=== PATIENT | female | born 1990 | race Caucasian/White ===

== ENCOUNTER → 2016-04-09 | Outpatient (CLI) | payer OTHER, MEDICAID | LOC: RAD 12:47 | PROVIDERS: ATTEND Family Medicine | DX: Z36 Encounter for antenatal screening of mother (principal) | CPT/HCPCS: 76805 ==

== ENCOUNTER → 2016-06-03 | Outpatient (REF) | payer MEDICAID, OTHER ==
[~2016-06-03] MED LIST: AMOX1TAB12 PO; DICY20TA10 PO; HYDR-757 PO; MAGN400O7 PO; MNTL10T PO; NAPR250T PO; NYST30CR TOP; ONDA4TAB8 PO; ONDA8TAB13 PO; OXYC1TAB87 PO; PNV1TAB.7 PO; PNV1TABL71 PO; PRM25T GT; PROM25SU10 PR; PROM25TA14 PO; URSO300C3 PO
== END ==
LOC: LAB 14:59
PROVIDERS: ATTEND Family Medicine
DX: Z33.1 Pregnant state, incidental (principal)
CPT/HCPCS: 86850; 86900; 86901

== ENCOUNTER → 2016-06-05 | Outpatient (CLI) | payer MEDICAID ==
[~2016-06-05] MED LIST changes: +HYDR-4131 PO; -HYDR-757 PO
--- NOTE | 2016-06-05 14:39 | Diagnostic Imaging Report ---
INDICATION: Size and dates. FINDINGS: Robb gestation measures 29 weeks 4 days, in cephalic position. Anterior placenta unremarkable. No abruption or previa. The amniotic fluid volume is within normal limits. heart rate 139 bpm. IMPRESSION: Robb gestation measuring 29 weeks 4 days in cephalic position, no pathological finding identified Dictated by: Dictated on workstation # [id number]
== END ==
LOC: RAD 10:01
PROVIDERS: ATTEND Family Medicine
DX: O26.843 Uterine size-date discrepancy, third trimester (principal); Z3A.29 29 weeks gestation of pregnancy
CPT/HCPCS: 76815

== ENCOUNTER 2016-06-26 15:15 | Outpatient (RCR) | payer MEDICAID ==
--- NOTE | 2016-06-18 15:25 | PT/OT/ST INITIAL EVALUATION ---
Department of Health and Human Services Form Approved [facility] [place] [employer] OMB No. [id number] PLAN OF CARE/ASSESSMENT FOR OUTPATIENT REHABILITATION (Complete for Initial Claims Only) 1. PATIENT'S NAME Senait Dobson 2. ACC # [id number] 3. HICN NA 4. PROVIDER NO. NA 5. TYPE: PT 6. PRIOR HOSPITALIZATION NA 7. PRIMARY DX Low back pain related to 8. SECONDARY DX NA 9. ONSET DATE 06/16/2016 10. REFERRAL DATE 06/16/2016 11. SOC. DATE 06/18/2016 12. TIME OF EVAL 13:25 12. REFERRING PHYSICIAN Breanna Rodriguez MD 13. CHARGES/UNITS Evaluation 02437 moderate complexity 2 units of therapeutic exercise 13766 14. G CODES NA 15. PRIOR LEVEL OF FUNCTION; PERTINENT HISTORY (Prior therapy results, reason for referral.) S: Prior to therapy, the patient consented to today's evaluation and treatment. The patient is a 26-year-old female referred by Dr. Breanna Rodriguez to address low back pain related to her . The patient presents to physical therapy 30 weeks with her second child. She does know she had an injury after falling with her first child during and is having pelvic-related issues with this second . Currently she reports pain in the low back into her hips that are most bothersome when transitioning from a prolonged seated position to standing position, or lying in bed then moving. Prior level of function: Prior to the progression of pain symptoms, the patient had no specific functional limitations. She does report they are currently in the process of moving home, as well as remodeling. 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 Current level of function: The patient denies any specific limitations, however, does have pain with most movement, as well as prior stated transitional movements after prolonged sitting or lying. Therapy History: The patient did not have any physical therapy for this issue during this , but did see a chiropractor prior to being 20 weeks . Obstacles to delivery of care: Caution should be used secondary to the patient being 30 weeks to avoid any modalities at this time, as well as avoiding joint mobilizations. Pain level: Maximum pain level is not provided. Current pain level is 8/10. Aggravating factors: The pain is aggravated when trying to move from sitting for prolonged periods of time. Relieving factors: It is relieved by Tylenol. Description of pain: The patient notes pain throughout her low back into the anterior lateral hips bilaterally, as well as experiencing numbness in the bilateral lower extremities when lying down for any longer period of time on either side. Diagnostic testing: Not applicable Past medical history: Includes right-sided sciatic nerve involvement when she was with her son, depression, as well as left knee ligamentous tears when she was in high school. Current medications: The patient is currently taking Tylenol as needed for pain. Activity level: Moderate Personal health rating: Fair Patient's Goal: The patient's goal is to not have pain. 16. INITIAL ASSESSMENT/SAFETY PRECAUTIONS/MEDICAL COMPLICATIONS (Level of function at start of care. Be specific, use objective measures, list problems.) O: APPEARANCE AND OBSERVATION: The patient presents to physical therapy with increased lumbar lordosis secondary to the positioning of her baby. Observation of the patient's iliac crest reveals right superior to the left. In standing, assessment in leg length in supine reveals the right lower extremity is shorter than the left. Observation of the patient's gait reveals a wide base of support secondary to the positioning of the baby. PALPATION: The patient has tenderness to palpation and tightness in the bilateral lumbar paraspinals, bilateral SI joints and iliotibial bands. SPECIAL TESTS: No special testing was performed this date. The patient does score a 53.75% disability on the Lower Extremity Functional Index. RANGE OF MOTION/FLEXIBILITY: Functional lower extremity range of motion was not limited in standing, but is limited in sitting secondary to the positioning of the baby. STRENGTH: Right hip flexion 4/5, left 5/5. Right abduction 5/5, left 5/5. Knee flexion right 4+5, left 4+/5. Knee extension right 5/5, left 5/5. Ankle dorsiflexion right 5/5, left 5/5. TODAY'S TREATMENT: Today's treatment consisted of educating the patient on the findings of the evaluation and recommended treatment plan. The physical therapist initiated lower extremity stretching and pelvic active range of motion exercises on a stability ball as well as initiating lower extremity nerve glides to decrease nerve tension throughout the lower extremities. The physical therapy then performed passive stretching of the bilateral hip flexors secondary to tightness in these areas. The patient was provided with a written home exercise program and this will be progressed as needed. 17. INITIAL POC: (Specify procedures, modalities, short and penitentiary goals) A: The patient presents to physical therapy with low back pain related to her . The patient does have limitations in muscle mobility throughout the lumbar paraspinals, bilateral hip flexors and IT bands. She does present with SI joint involvement, as well as impaired body mechanics secondary to where the patient is in her . INFORMED CONSENT: The diagnosis, prognosis, treatment plan, risks and expected outcomes were discussed with this patient and she is agreeable to today's established plan of care. SHORT TERM GOALS X3 WEEKS: 1. The patient will be independent and compliant with her home exercise program. 2. The patient will have a pain level decreased from 6/10 to 3/10 in order to take care of her child at home with less difficulty. 3. The patient will maintain neutral leg length over a 1-week time period to assist in decreasing pain as well. CORD TI[employer] BUILDER GOALS X6 WEEKS: 1. The patient will report a pain level of less than or equal to 3/10 with transitional movements and at night to improve her restful sleep. 2. The patient will improve hip flexion and knee flexion strength to be 5/5 to improve lower extremity support. 3. The patient will improve her Lower Extremity Functional Index score by a minimum of 10%. P: Plan to treat this patient 3 times a week for 6 weeks in order to address low back pain, lower extremity numbness and pelvic alignment issues related to her . The treatment will include manual therapy techniques upon physical approval, but joint mobilizations should be avoided. Therapeutic exercise will emphasize on improving lower extremity flexibility, low back mobility, as well as lower extremity and core strengthening; however, caution should be used secondary to the patient's stage of . The patient was provided with a home exercise program and this will be progressed as needed. Functional training will also be utilized to improve body mechanics as the patient progresses through her as well. Thank you for the referral of this patient. 18. FREQUENCY 3 times per week 19. DURATION 6 weeks 20. FUNCTIONAL LEVEL (End of claim period) 21. PHYSICIAN SIGNATURE ? ON FILE OR ENTER HERE: 22. DATE: I certify the need for these services furnished under this plan of care and if for partial hospitalization. 23. CERTIFICATION FROM THROUGH FORM [id number]
== END 2016-07-06 12:00 | disposition home or self-care (01) ==
LOC: PT 15:15
PROVIDERS: ATTEND Family Medicine
DX: O26.893 Other specified pregnancy related conditions, third trimester (principal); M54.5 Low back pain; Z3A.30 30 weeks gestation of pregnancy

== ENCOUNTER 2016-07-22 11:14 | Outpatient (CLI) | payer MEDICAID ==
[2016-07-22 11:30] VITALS: BP 120/55
[2016-07-22 12:20] VITALS: BP 118/58
--- NOTE | 2016-07-22 16:04 | NUR ---
Complete admission assessment not done during this eval. States no problems during the up to this time. The following confirmed with patient as noted on her . Is Rh neg and has received Rhogam. Allergies to arithromycin and doxycycline. EDC 08/24/16. Taking PNV's and recently began Fluoxetine for depression.
== END 2016-07-22 12:30 | disposition home or self-care (01) ==
LOC: OBGOP 11:14 → OB 11:15 → EUOP 12:30
PROVIDERS: ATTEND Family Medicine
DX: Z03.79 Encounter for other suspected maternal and fetal conditions ruled out (principal)
CPT/HCPCS: 84112